=== PATIENT | male | born 1980 | race Caucasian/White ===

== ENCOUNTER → 2016-05-28 | Outpatient (CLI) | payer OTHER ==
--- NOTE | 2016-05-28 17:38 | PFTRPT ---
PULMONARY FUNCTION REPORT ORDERING PROVIDER: Tarah Almeida D.O. DATE OF SERVICE: 05/28/16 SPIROMETRY: Pre and post bronchodilator study of excellent technical quality. The forced vital capacity is reduced. The FEV1 is out of proportion. The obstructive index is, therefore, reduced. FLOW VOLUME LOOP: The expiratory limb of the flow volume loop is consistent with flow rate reduction. There is at least some degree of bronchodilator response identified. LUNG VOLUMES: The total lung capacity is normal. The residual volume suggests a degree of air trapping. DIFFUSION CAPACITY: The diffusion capacity is normal. HEMOGLOBIN: No hemoglobin is available for correction. AIRWAY MECHANICS: Airways resistance and conductance are reasonable. IMPRESSION: Mild obstructive ventilatory impairment with bronchodilator response. Mild degree of underlying air trapping. MTDD
== END ==
LOC: M CARPUL 16:53
PROVIDERS: ATTEND Student in an Organized Health Care Education/Training Program
DX: J45.909 Unspecified asthma, uncomplicated (principal)